=== PATIENT | male | born 1975 | race Hispanic/Latino ===

== ENCOUNTER 2021-10-28 10:04 | Observation (INO) | payer SELFPAY ==
[~2021-10-28] VITALS: Ht 134.6 cm; Wt 57.0 kg
[2021-10-28 11:00] LABS: HEMATOCRIT 43.4 % (39.0-50.0); HEMOGLOBIN 14.5 g/dl (14.0-18.0); IMMATURE GRANULOCYTES 0.6 % (0.0-5.0); MEAN CELL VOLUME 92.7 fL CALC (80.0-100.0); MEAN CORPUSCULAR HGB CONC 33.4 g/dL CAL (32.0-36.0); NEUT# 4.63 thou/uL (1.82-7.42); RED BLOOD COUNT 4.68 mill/uL (4.70-6.10)
[2021-10-28 11:18] LABS: ALBUMIN 3.9 g/dL (3.2-5.0); ALKALINE PHOSPHATASE 85 u/l (38-126); ANION GAP 9 (6-22 (CALC)); BILIRUBIN, TOTAL 0.4 mg/dL (0.0-1.4); BUN 12 mg/dL (9-20); BUN/CREATININE RATIO 12 (12-20 (CALC)); CARBON DIOXIDE 26 mmol/l (22-30); CHLORIDE 106 mmol/l (95-108); GFR FOR AFR.AMER. > 60 ML/MIN (>=60 (CALC)); GFR OTHER RACES > 60 ML/MIN (>=60 (CALC)); POTASSIUM 4.4 mmol/l (3.5-5.1); SGOT/AST 27 u/l (17-59); SODIUM 136 mmol/l (137-146); TOTAL PROTEIN 6.8 g/dL (6.3-8.2)
--- NOTE | 2021-10-28 12:50 | NUR ---
Reassessment of patient completed. No distress noted.
--- NOTE | 2021-10-28 13:50 | NUR ---
PATIENT TO BE ADMITTED TO MED SURG FLOOR. PATIENT AWARE AND AGREEABLE WITH PLAN OF CARE. Reassessment of patient completed. No distress noted.
--- NOTE | 2021-10-28 13:52 | NUR ---
PATIENT ALERT AND PLEASANT. NO ACUTE DISTRESS NOTED. PATIENT ADMITTED TO MED SURG FLOOR. PATIENT TAKEN UP VIA WHEELCHAIR. BEDSIDE REPORT GIVEN. VSS.
[2021-10-28 14:00] VITALS: BP 106/65
--- NOTE | 2021-10-28 14:00 | NUR ---
PT ARRIVED TO [facility] VIA WHEEL CHAIR FAMILY AT BEDSIDE. REPORT RECIEVED FROM ER NURSE.
[2021-10-28 14:04] VITALS: BP 106/65
[2021-10-28 16:00] VITALS: BP 106/65
--- NOTE | 2021-10-28 16:00 | NUR ---
PT RESTING IN HIGH FOWLERS FAMILY AT BEDSIDE DENIES ADDITIONAL NEEDS ALL SAFETY PRECAUTIONS IN PLACE
--- NOTE | 2021-10-28 16:48 | NUR ---
PT RESTING IN FOWLERS POSITION. A/OX3 ASSESSMENT AND VS COMPLETED.HEART RHYTHM NORMAL.RESPIRATIONS EVEN UNLABORED. LUNG SOUNDS TO RLQ COARSE. BOWEL SOUNDS ACTIVE. IV SITE NOTED TO LAC. PT DENIES ADDITIONAL NEEDS AT THE TIME. PT ORIENTED TO ROOM . ALL SAFETY PRECAUTIONS IN PLACE. NO DRESSING ON LLEXTREMITY.
[2021-10-28 20:12] VITALS: BP 104/67
--- NOTE | 2021-10-28 20:30 | NUR ---
PT RESTING IN BED NO SIGNS OF DISTRESS NOTED, RESP EVEN AND UNLABORED. PT ALERT AND ORIENTED X3, NOTED EDEMA AND REDNESS TO LLE, AREA HAS CRUSTING AND DRY PATCHES, WEEPING SCANT AMOUNT OF SEROUS FLUID. AREA ABDOULAYE. PT DENIES ANY PAIN. DISCUSSED POC AND TIMES OF ANTIBIOTICS, VERBALIZED UNDERSTANDING. ASSESSMENT COMPLETED, CALL LIGHT IN REACH,CONTINUE TO MONITOR.
--- NOTE | 2021-10-29 | NUR ---
PT RESTING WITH EYES CLOSED, NO SIGNS OF DISTRESS NOTED, RESP EVEN AND UNLABORED. CALL LIGHT IN REACH,CONTINUE TO MONITOR.
[2021-10-29 05:07] VITALS: BP 98/62
--- NOTE | 2021-10-29 05:25 | NUR ---
PT RESTING IN BED, NO SIGNS OF DISTRESS NOTED, RESP EVEN AND UNLABORED. PT VOICES NO NEEEDS OR COMPLAINTS AT THIS TIME. CALL LIGHT IN REACH,CONTINUE TO MONITOR.
[2021-10-29 05:36] LABS: HEMATOCRIT 42.6 % (39.0-50.0); HEMOGLOBIN 14.1 g/dl (14.0-18.0); MEAN CELL VOLUME 93.8 fL CALC (80.0-100.0); MEAN CORPUSCULAR HGB 31.1 pG CALC (26.0-32.0); MEAN CORPUSCULAR HGB CONC 33.1 g/dL CAL (32.0-36.0); RED BLOOD COUNT 4.54 mill/uL (4.70-6.10); RED CELL DISTRI WIDTH 13.1 % (11.5-15.5)
[2021-10-29 05:54] LABS: ANION GAP 11 (6-22 (CALC)); BUN 15 mg/dL (9-20); BUN/CREATININE RATIO 19 (12-20 (CALC)); CARBON DIOXIDE 26 mmol/l (22-30); CHLORIDE 104 mmol/l (95-108); CREATININE 0.8 mg/dL (0.7-1.3); GFR FOR AFR.AMER. > 60 ML/MIN (>=60 (CALC)); GFR OTHER RACES > 60 ML/MIN (>=60 (CALC)); MAGNESIUM 2.1 mg/dL (1.6-2.3); POTASSIUM 4.7 mmol/l (3.5-5.1); SODIUM 136 mmol/l (137-146)
[2021-10-29 06:16] VITALS: BP 105/56
--- NOTE | 2021-10-29 07:00 | NUR ---
PT REPORT RECIEVED FROM PSYCH SOCIAL WORKER COSTUMER
[2021-10-29] MEDS ORDERED: CEPHALEXIN500 M1 PO (07:34)
[2021-10-29 08:00] VITALS: BP 105/56
--- NOTE | 2021-10-29 08:44 | NUR ---
PT RESTING IN HIGH FOWLERS POSITION. A/OX3 ASSESSMENT AND VS COMPLETED. HEART RHYTHM NORMAL , RESPIRATIONS EVEN AND UNLABORED. CRACKLES TO LLLUNG. BOWEL SOUNDS ACTIVE. IV PATENT FLUSHED. LLE OPEN TO AIR.SWELLING WITH SOME REDNNESS TO AREA. PICTURE IN CHART. PT DENIES ADDITIONAL NEEDS AT THE TIME . ALL SAFETY PRECAUTIONS IN PLACE. WITH CALL LIGHT IN REACH.
--- NOTE | 2021-10-29 12:06 | NUR ---
PT RESTING IN HIGH FOWLERS . PT FAMILY AT BEDSIDE. DENIES ADDITIONAL NEEDS AT THE TIME.
[2021-10-29 14:05] VITALS: BP 130/79
--- NOTE | 2021-10-29 16:02 | NUR ---
PT RESTING IN LOW FOWLERS POSITION. PT DENIES ADDITIONAL NEEDS AT THE TIME FAMILY AT BEDSIDE. PT WOUND OPEN TO AIR. SAFETY PRECAUTIONS IN PLACE.CALL LIGHT IN REACH
[2021-10-29 16:18] VITALS: BP 130/79
[2021-10-29 18:55] VITALS: BP 104/65
--- NOTE | 2021-10-29 19:06 | NUR ---
PT RESTING IN BED WATCHING TV, AT BEDSIDE, NO SIGNS OF DISTRESS NOTED, RESP EVEN AND UNLABORED. NOTED SWELLING TO LLE HAS SUBSIDED SINCE PRIOR ASSESSMENT. PT DENIES ANY PAIN OR COMPLAINTS AT THIS TIME. DISCUSSED POC AND MEDICATION CHANGES, PT VERBALIZED UNDERSTANDING. STATES HE NOTICES THE IMPROVEMENTS TO HIS LLE. ASSESSMENT COMPLETED, CALL LIGHT IN REACH,CONTINUE TO MONITOR.
--- NOTE | 2021-10-29 21:00 | NUR ---
PT RESTING IN BED, WATCHING TV, NO SIGNS OF DISTRESS NOTED, RESP EVEN AND UNLABORED. DISCUSSED MEDICATIONS, PT MEDICATED FOR PAIN/IRRITATION TO LLE PT C/O 08/22. CLEANSED LLE WITH NS PATTED DRY AND APPLIED HYDROGEN PEROXIDE, PAT DRY THEN LEFT ABDOULAYE, PT TOLERATED WELL. VOICES NO NEEDS OR COMPLAINTS AT THIS TIME. CALL LIGHT IN REACH,CONTINUE TO MONITOR.
--- NOTE | 2021-10-30 | NUR ---
PT RESTING IN BED WITH EYES CLOSED, NO SIGNS OF DISTRESS NOTED, RESP EVEN AND UNLABORED. CALL LIGHT IN REACH,CONTINUE TO MONITOR.
--- NOTE | 2021-10-30 03:00 | NUR ---
PT RESTING IN BED, NO SIGNS OF DISTRESS NOTED, RESP EVEN AND UNLABORED. IV INFUSION COMPLETED, VOICES NO NEEDS OR COMPLAINTS AT THIS TIME. CALL LIGHT IN REACH,CONTINUE TO MONITOR.
[2021-10-30 04:46] VITALS: BP 101/56
[2021-10-30 04:53] VITALS: BP 101/56
[2021-10-30 05:51] LABS: HEMATOCRIT 41.6 % (39.0-50.0); HEMOGLOBIN 13.6 g/dl (14.0-18.0); IMMATURE GRANULOCYTES 0.2 % (0.0-5.0); MEAN CELL VOLUME 93.5 fL CALC (80.0-100.0); MEAN CORPUSCULAR HGB 30.6 pG CALC (26.0-32.0); MEAN CORPUSCULAR HGB CONC 32.7 g/dL CAL (32.0-36.0); NEUT# 10.23 thou/uL (1.82-7.42); RED BLOOD COUNT 4.45 mill/uL (4.70-6.10); RED CELL DISTRI WIDTH 12.9 % (11.5-15.5)
[2021-10-30 06:13] LABS: ALBUMIN 3.5 g/dL (3.2-5.0); ALKALINE PHOSPHATASE 100 u/l (38-126); ANION GAP 9 (6-22 (CALC)); BILIRUBIN, TOTAL 0.2 mg/dL (0.0-1.4); BUN 14 mg/dL (9-20); BUN/CREATININE RATIO 17 (12-20 (CALC)); C-REACTIVE PROTEIN 0.8 mg/dL (0-0.9); CARBON DIOXIDE 24 mmol/l (22-30); CHLORIDE 107 mmol/l (95-108); CREATININE 0.8 mg/dL (0.7-1.3); GFR FOR AFR.AMER. > 60 ML/MIN (>=60 (CALC)); GFR OTHER RACES > 60 ML/MIN (>=60 (CALC)); POTASSIUM 4.2 mmol/l (3.5-5.1); SGOT/AST 19 u/l (17-59); SODIUM 136 mmol/l (137-146); TOTAL PROTEIN 6.2 g/dL (6.3-8.2)
[2021-10-30 06:45] VITALS: BP 103/55
--- NOTE | 2021-10-30 07:11 | NUR ---
RECEIVE REPORT FROM BRADLEY JONES.
--- NOTE | 2021-10-30 07:45 | NUR ---
PATIENT ALERT AND ORIENTED X3. RESTING IN BED. REFER PAIN. MEDICATION FOR PAIN DONE. PATIENT WITH CELLULITIS IN LEFT LEG I READY CLEAN. PATIENT IS EDUCATED ABOUD MEDICATIONS AND NURSUNG PLAN FOR TODAY. PT REFER UNDERSTAND.
[2021-10-30 07:59] VITALS: BP 103/55
--- NOTE | 2021-10-30 12:19 | NUR ---
PATIENT RESTING IN BED. STABLE ST THIS TIME.
[2021-10-30 14:24] VITALS: BP 130/80
--- NOTE | 2021-10-30 16:30 | NUR ---
PATIENT STABLE AT THIS TIME. CONSULT WITH INFECTION DISEASE DOCTOR IS DONE. CLEAN AGAIN CELLULITIS AREA. PT REFER FEEL BETTER.
[2021-10-30 19:05] VITALS: BP 133/71
--- NOTE | 2021-10-30 19:52 | NUR ---
PATIENT SITTING IN BED-AWAKE ALERT AND ORIENTEDX3. PATIENT IS ESTONIAN SPEAKING ONLY AND HERE WITH CELLULITIS LEFT LE. DEXTER FLOR HERE FOR TRANSLATION. PATIENT IS C/O ITCHING TO LLE-DR. CHAPMAN WAS CALLED AND STATES THAT HE WILL ADDRESS AT THIS TIME AND PLACE NEW ORDER. LLE IS SWOLLEN WITH RAISED RASH. NO DRAINAGE AT THIS TIME. DENIES ANY PAIN. PATIENT WITH SALINE LOCK TO LEFT ARM-APPEARS HEALTHY AT THIS TIME. STATES THAT HE DID HAVE BM TODAY AND DENIES ANY DIFFICUTLY WITH URINATION. SAFETY PRECAUTIONS REINFORCED. CALL LIGHT IN REACH. WILLL CONT TO MONITOR.
--- NOTE | 2021-10-30 21:00 | NUR ---
PATIENT RESTING IN BED-FAMILY WAS HERE TO VISIT. MEDICATED WITH BENEDRYL 25MG PO FOR ITCHING. CALL LIGHT IN REACH. WILL CONT TO MONITOR.
--- NOTE | 2021-10-31 00:18 | NUR ---
PATIENT RESTING IN BED-STATES THAT HE GOT NO RELIEF FROM BENEDRYL GIVEN EARLER. SALINE LOCK TO LAC REMAINS INTACT. CALL LIGHT IN REACH. WILL CONT TO MONITOR.
--- NOTE | 2021-10-31 04:00 | NUR ---
PATIENT RESTING IN BED-ADVISED VIA FINANCIAL ADMINISTRATION OFFICER THAT THE ANTIBIOTIC DOXYCYCLINE HAS BEEN D/C'ED TONIGHT. WILL RECIEVE STEROID IN THE MORNING. VERBALIZES UNDERSTANDING. CALL LIGHT IN REACH. WILL CONT TO MONITOR.
[2021-10-31 04:41] VITALS: BP 121/73
[2021-10-31 04:57] LABS: HEMATOCRIT 41.4 % (39.0-50.0); HEMOGLOBIN 13.7 g/dl (14.0-18.0); MEAN CELL VOLUME 93.2 fL CALC (80.0-100.0); MEAN CORPUSCULAR HGB 30.9 pG CALC (26.0-32.0); MEAN CORPUSCULAR HGB CONC 33.1 g/dL CAL (32.0-36.0); RED BLOOD COUNT 4.44 mill/uL (4.70-6.10)
[2021-10-31 05:15] LABS: ANION GAP 9 (6-22 (CALC)); BUN 15 mg/dL (9-20); BUN/CREATININE RATIO 18 (12-20 (CALC)); CARBON DIOXIDE 25 mmol/l (22-30); CHLORIDE 108 mmol/l (95-108); CREATININE 0.8 mg/dL (0.7-1.3); GFR FOR AFR.AMER. > 60 ML/MIN (>=60 (CALC)); GFR OTHER RACES > 60 ML/MIN (>=60 (CALC)); POTASSIUM 4.6 mmol/l (3.5-5.1); SODIUM 138 mmol/l (137-146)
--- NOTE | 2021-10-31 07:00 | NUR ---
RECEIVE REPORT FROM HUNG JONES.
[2021-10-31 07:19] VITALS: BP 111/77
[2021-10-31 11:04] VITALS: BP 119/74
[2021-10-31] MEDS ORDERED: PREDNISONE20 MG PO (11:33)
--- NOTE | 2021-10-31 12:26 | NUR ---
PATIENT DISCHARGED IS EDUCATED ABOUD MEDICATIONS AT HOME AND FOLLOW UP WITH DOCTOR. PT REFER UNDERSTAND.
== END 2021-10-31 12:30 | disposition home or self-care (01) | DRG 607 ==
LOC: ED 10:04 → ED-I 11:25 → ED 11:44 → MS2 11:45
PROVIDERS: Family Medicine; Internal Medicine; ADMIT Hospitalist; ATTEND Hospitalist
DX: L23.7 Allergic contact dermatitis due to plants, except food (principal); X58.XXXA Exposure to other specified factors, initial encounter; Y93.H2 Activity, gardening and landscaping; Y99.0 Civilian activity done for income or pay; Z20.822 Contact with and (suspected) exposure to COVID-19
CPT/HCPCS: G0378; J1650; Q3014